=== PATIENT | male | born 1975 | race Caucasian/White ===

== ENCOUNTER 2019-07-23 09:51 | Emergency (ER) | payer BC, OTHER ==
[~2019-07-23] VITALS: Ht 167.6 cm; Wt 84.1 kg
[~2019-07-23 09:51] MED LIST: ACYC400T2 ORAL; DARU1TAB ORAL; DOLU50TA ORAL; HYDR-3980 PO; IBUP800T48 PO
[2019-07-23 09:59] VITALS: Ht 167.6 cm; Wt 84.1 kg
[2019-07-23] MEDS ORDERED: ACETAMINOPHEN 325 MG TAB PO STA (10:55)
[2019-07-23] MEDS ORDERED: PENICILLIN G BENZ 1.2 MIL UNIT SYG IM ONE (11:00)
[2019-07-23 12:31] VITALS: BP 109/76; PULSE 63; RESP 18
== END 2019-07-23 12:31 | disposition home or self-care (01) ==
LOC: E/R 09:51
DX: J02.9 Acute pharyngitis, unspecified (principal)
CPT/HCPCS: 71045; 87400; 96372; 99284; J0561